=== PATIENT | female | born 1990 | race Caucasian/White ===

== ENCOUNTER 2018-10-25 09:55 | Inpatient (IN) | payer BC, MEDICAID ==
--- NOTE | 2018-10-25 10:07 | PCM.LDHP ---
L&D History of Present Illness - General Date of Service: 10/25/18 Admit Problem/Dx: Admission Diagnosis/Problem Admission Diagnosis/Problem 10/25/18 10:01 Cc a 27-year-old 1 para 0 white female admitted at 40-4/7 weeks gestational age for elective induction of labor. DIANA is 10/21/2018. Source of Information: Patient History Limitations: Reports: No Limitations - History of Present Illness Introduction:: Ida is a 27-year-old 1 para 0 white female present at a and 4/7 weeks gestational age. DIANA is 10/21/2018 as determined by a early ultrasound done 2017 at 6-4/7 weeks gestational age. It is supported by several other ultrasounds done during the course of the . LMP was 01/14/2018. Her last menstrual period was fairly certain. Menarche age 13. Cycles every 26-28 days. No control at the time conception. 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 Patient had her first visit early in the . Is at 11 weeks and 3 days. She is seen on a regular basis. Weight gain was from 205.3 pounds to 249 pounds for a 44 pound weight gain. Her vital signs were stable throughout the course. Patient had mildly elevated blood pressure in the antepartum period she had a flu shot dated 2017. Her group B strep screen was negative on 09/21/2018. She had history of atypical squamous cells of undetermined significance on Pap smear 04/04/2018. She desires to breast-feed. T dap was given on 08/25/2018. Estimated weight on ultrasound done 10/05/2018 was 6 pounds 10 ounces and Laboratory testing and shows her blood to be O+ with a negative antibody screen. First hemoglobin was 13.5 g/dL. Platelets were 264, 000. She is rubella immune. RPR is nonreactive. Hepatitis B surface antigen and HIV assays were both negative. Her chlamydia and gonorrhea were positive and negative respectively. Patient was treated for chlamydia and test of cure was negative. Second trimester labs showed hemoglobin which was normal at 12.8 g/ dL. Platelets were 250,000. One-hour GTT was normal at 112. Group B strep screen was negative. Allergies: none Medications: vitamins Past medical history: 1. Low serum progesterone early in the . 2. Atypical squamous cells on previous Pap smear. Family history: Mother is alive and has an abnormal heart rhythm. She has had her gallbladder removed. She had preeclampsia with third trimester of her first . Father is alive but has diabetes. 2 sisters alive and well. Maternal grandfather health unknown. Maternal grandmother has had her gallbladder removed due to a cancerous lesion. Asthma also present. Paternal grandfather at age 70 from obesity and heart disease. Paternal grandmother is alive and well. There is no family history of cancer, bleeding, clotting, -related issues. Social history: She is single. Her significant other is Vargas Franco. [place] in [facility]. 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 Does not use any significant muscle L call, drugs or tobacco. Review of systems: In general patient has no complaints. Skin: Negative Lungs: No infectious symptoms or shortness of breath Cardiovascular: No chest pain or exercise intolerance Breasts: No lumps, changes in size, pain, dimpling, discharge or axillary or supraclavicular concerns. GI: Negative : Negative Musculoskeletal: Negative Neurological: Negative In general the patient is well-developed, well-nourished, pleasant female of stated age in no acute distress. Skin is warm dry without lesions. HEENT, neck and back within normal limits. Lungs are clear with good breath sounds in all lung sousa. Cardiovascular exam shows regular and rhythm without murmurs. Abdomen is protuberant with fundal height of 42 cm. Patient is moderately obese. Genital-cervix is 2 cm, 70% effaced, soft, posterior, -3 station Extremities and neurological exam are grossly within normal limits. H&P Review of Systems - Review of Systems: Review Of Systems: See Below L&D Exam - Exam Exam: See Below Problem List Initiated/Reviewed/Updated: Yes Assessment/Plan Comment:: 1. 40 4/7 week intrauterine with an DIANA of 10/21/2018admitted for elective induction of labor. 2. Group B strep screen negative 3. The patient plans to breast-feed 4. T dap, flu shot have been given. She is rubella immune. 5. Patient desires epidural in labor and delivery for analgesia. Plan: 1. Pitocin induction of labor with augmentation by artificial rupture membranes. 2. Epidural in labor for analgesia 3. Support breast-feeding decision. 4. Anticipate normal spontaneous vaginal delivery
[2018-10-25] MEDS ORDERED: Sodium Chloride 0.9% 10 ML Syringe FLUSH PRN (19:53)
[2018-10-25] MEDS: Lactated Ringers 1,000 ML IV SCH (21:58)
[2018-10-25] MEDS: Oxytocin/Lactated Ringers 10 UNIT/1,000 ML BAG IV SCH (21:58)
[2018-10-25] MEDS ORDERED: Bupivacaine 0.25% 10 ML SDV ONE (22:00)
[2018-10-25] MEDS ORDERED: Lidocaine 1.5% with EPINEPHrine 1:200,000 5 ML Amp ONE (22:00)
[2018-10-26] MEDS: Lactated Ringers 1,000 ML IV SCH ×6 (01:55→16:35)
[2018-10-26] MEDS ORDERED: fentaNYL 100 MCG/2 ML SDV EPIDUR PRN (07:59)
[2018-10-26] MEDS ORDERED: diphenhydrAMINE 50 MG/ML SDV IVPUSH PRN (07:59)
[2018-10-26] MEDS ORDERED: Ondansetron 4 MG/2 ML SDV IVPUSH PRN (07:59)
[2018-10-26] MEDS ORDERED: ePHEDrine 50 MG/ML SDV IVPUSH PRN (07:59)
[2018-10-26] MEDS: fentaNYL/Bupivacaine-NS 2 MCG/ML-0.125%/PF 100 ML Bag EP SCH ×2 (08:50→17:00)
--- NOTE | 2018-10-26 08:54 | PCM.PREANE ---
Preanesthetic Assessment - Anesthesia/Transfusion/Family Hx Anesthesia History: Prior Anesthesia Without Reaction Family History of Anesthesia Reaction: No Transfusion History: No Prior Transfusion(s) - Review of Systems General: No Symptoms Pulmonary: No Symptoms, Other (congestion in sinus/nasal) Cardiovascular: No Symptoms Gastrointestinal: Other (GERD with ) Neurological: No Symptoms Other: Reports: None - Physical Assessment O2 Sat by Pulse Oximetry: 98 Respiratory Rate: 16 Vital Signs: Last Vital Signs Temp 36.6 C 10/25/18 19:53 Pulse 110 H 10/25/18 19:53 Resp 16 10/25/18 19:53 BP 139/93 H 10/25/18 19:53 Pulse Ox 98 10/25/18 19:53 Height: 1.6 m Weight: 113.534 kg ASA Class: 2 Mental Status: Alert & Oriented x3 Airway Class: Mallampati = 2 Dentition: Reports: Normal Dentition Thyro-Mental Finger Breadths: 2 Mouth Opening Finger Breadths: 3 ROM/Head Extension: Full Lungs: Clear to Auscultation, Normal Respiratory Effort Cardiovascular: Regular Rate, Regular Rhythm - Lab Values: Laboratory Last Values WBC 9.15 K/mm3 (3.98-10.04) 10/25/18 20:10 RBC 4.31 M/mm3 (3.98-5.22) 10/25/18 20:10 Hgb 12.5 gm/L (11.2-15.7) 10/25/18 20:10 Hct 37.6 % (34.1-44.9) 10/25/18 20:10 MCV 87.2 fl (79.4-94.8) 10/25/18 20:10 MCH 29.0 pg (25.6-32.2) 10/25/18 20:10 MCHC 33.2 g/dl (32.2-35.5) 10/25/18 20:10 RDW Std Deviation 45.3 fL (36.4-46.3) 10/25/18 20:10 Plt Count 229 K/mm3 (182-369) 10/25/18 20:10 MPV 12.0 fl (9.4-12.3) 10/25/18 20:10 RPR Non-reactive (NONREACTIVE) 10/25/18 20:10 - Allergies Allergies/Adverse Reactions: Allergies Allergy/AdvReac Type Severity Reaction Status Date / Time No Known Allergies Allergy Verified 10/25/18 19:51 - Acknowledgements Anesthesia Type Planned: Epidural Pt an Appropriate Candidate for the Planned Anesthesia: Yes Alternatives and Risks of Anesthesia Discussed w Pt/Guardian: Yes Pt/Guardian Understands and Agrees with Anesthesia Plan: Yes PreAnesthesia Questionnaire - Past Health History Medical/Surgical History: Denies Medical/Surgical History Other HEENT History: wears glasses 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: - Past Surgical History GI Surgical History: Reports: Appendectomy Other GI Surgeries/Procedures: appy at 15 years old - SUBSTANCE USE Smoking Status *Q: Former Smoker Tobacco Use Within Last Twelve Months: Cigarettes Second Hand Smoke Exposure: No Recreational Drug Use History: No - CURRENT (IN HOUSE) MEDS Current Meds: Current Medications Diphenhydramine HCl (Benadryl) 25 mg IVPUSH Q6H PRN PRN Reason: Pruritis Ephedrine Sulfate (Ephedrine Sulfate) 5 mg IVPUSH ASDIRECTED PRN PRN Reason: Hypotension Fentanyl (Sublimaze) 100 mcg EPIDUR ONETIME PRN PRN Reason: Pain Last Admin: 10/26/18 08:50 Dose: 100 mcg Fentanyl/Bupivacaine HCl (Jmxbhjum-Waxji-Iv 2 Mcg/Ml-0.125%) 100 ml EP ASDIRECTED [facility] Last Admin: 10/26/18 08:50 Dose: 100 ml Lactated Ringer's (Ringers, Lactated) 1,000 mls @ 40 mls/hr IV ASDIRECTED [facility] Last Admin: 10/26/18 08:47 Dose: 999 mls/hr Oxytocin/Lactated Ringer's (Pitocin In Lr 10 Units/1,000 Ml) 10 unit in 1,000 mls @ 12 mls/hr IV TITRATE [facility]; Protocol Last Titration: 10/26/18 08:47 Dose: 12 munits/min, 72 mls/hr Ondansetron HCl (Zofran) 4 mg IVPUSH ONETIME PRN PRN Reason: Nausea/Vomiting Sodium Chloride (Saline Flush) 10 ml FLUSH ASDIRECTED PRN PRN Reason: Keep Vein Open
[2018-10-26] MEDS ORDERED: Lidocaine 1% 50 ML MDV ONE (17:09)
[2018-10-26] MEDS ORDERED: Lidocaine 1% 20 ML MDV INJECT ONE (17:12)
[2018-10-26] MEDS: Oxytocin/Lactated Ringers 10 UNIT/1,000 ML BAG IV SCH (17:17)
[2018-10-26] MEDS ORDERED: Witch Hazel Medicated Pads 100/Jar TOP PRN (19:27)
[2018-10-26] MEDS ORDERED: Lanolin 100% Cream 7 GM Tube TOP PRN (19:27)
[2018-10-26] MEDS ORDERED: Acetaminophen 325 MG Tab PO PRN (19:27)
[2018-10-26] MEDS ORDERED: Benzocaine/Menthol 20%-0.5% Spray 56 GM Canister TOP PRN (19:27)
--- NOTE | 2018-10-26 19:29 | PCM.SN ---
- Free Text/Narrative Note: Delivery note: Ida is a 27-year-old 1 now para 1001 white female who was admitted at 40-5/7 weeks gestational age with an DIANA of 10/21/2018. On the evening 10/25/2018 for an elective induction of labor. She was noted be 2 cm dilated. She was started on Pitocin dosing throughout the night. This a.m. she began progressing more quickly. She underwent an epidural for labor analgesia. She progressed to complete by approximately 1513 hrs. and pushed for approximately 2 hours. At this time patient was relatively fatigued and ask for possible intervention. Options of therapy included continuing pushing as was presently being done, vacuum extraction delivery or section. Patient opted for the extraction attempt. This is discussed in detail including risks, benefits, alternatives. Vacuum extractor was placed. The perineum was infiltrated with lidocaine as epidural was not covering that area very well. She then underwent vacuum extraction delivery and delivered with 1 contraction. Baby delivered in a left occiput anterior position with baby's head rotating the left occiput posterior position with the vacuum extraction delivery. A midline episiotomy was made. No further lacerations occurred. Baby was delivered nose and mouth were bulb suctioned. There is noted to be terminal meconium following the baby. Baby was placed on mom's abdomen. Cord was clamped 2 and then cut by the baby's father. Cord blood was obtained. Pitocin was started after delivery of the baby to facilitate increase in uterine tone and decrease likelihood of bleeding. The placenta in a Urbano dictation, appeared intact and complete and was discarded per patient desire. The midline episiotomy was repaired with 3-0 Monocryl suture in a running fashion no other lacerations were noted. The patient had an estimated blood loss of 100 mL. Plans to breast-feed. Condition: Good
[2018-10-26] MEDS: Ibuprofen 600 MG Tab PO PRN (19:49)
[2018-10-26] MEDS: Docusate Sodium 100 MG Cap PO PRN (19:50)
[2018-10-27] MEDS: Ibuprofen 600 MG Tab PO PRN ×2 (04:04→16:27)
--- NOTE | 2018-10-27 06:46 | PCM.SN ---
- Free Text/Narrative Note: note: Patient is doing well in the period. Minimal lochia, voiding well, ambulated without problems. Nursing without concerns. Patient is afebrile, vital signs pressured be mildly elevated to moderately elevated at times. We'll continue to monitor blood pressures however ensure that the pressure cuff size is appropriate for patient. Abdomen is flat, soft, uterus is below the umbilicus and is firm and nontender. Legs are nontender. Assessment: recovery going well. Pressure borderline to elevated. Question whether appropriate size cuff has been use. Will check with appropriate size, and look at trending blood pressures. Plan: Routine care. Patient be discharged home within the next 24-48 hours.
[2018-10-27] MEDS ORDERED: Prenatal Multivitamin with Calcium/Folic Acid/Iron Tab PO SCH (09:00)
--- NOTE | 2018-10-27 12:47 | PCM48HPAN ---
Post Anesthesia Note - EVALUATION WITHIN 48HRS OF ANESTHETIC Vital Signs in Normal Range: Yes Patient Participated in Evaluation: Yes Respiratory Function Stable: Yes Airway Patent: Yes Cardiovascular Function Stable: Yes Hydration Status Stable: Yes Pain Control Satisfactory: Yes Nausea and Vomiting Control Satisfactory: Yes Mental Status Recovered: Yes - COMMENTS/OBSERVATIONS Free Text/Narrative:: Patient denied any post anesthesia complications
--- NOTE | 2018-10-27 17:58 | PCM.SN ---
- Free Text/Narrative Note: Close clinical monitoring of patient patient's blood pressure is borderline at upper limits of normal to mildly in creased at times. Her preeclampsia labs returned showing 2 significant findings 1 was uric acid 5.1 which is mildly elevated and an AST which 38 which is mildly elevated. Patient's deep tendon reflexes are negligible. She feels fine. Denies any headaches, vision problems, right upper quadrant pain or other signs or symptoms of preeclampsia. New Pap assessment: Assessment: 1. 40-4/7 week intrauterine , delivered, borderline blood pressures, questionable mild preeclampsia was stable clinical situation. Plan: 1. Monitor blood pressures until discharge from hospital. 2. After discharge and see the patient back in a couple days to see how she is doing. We'll have her call for any signs/symptoms of preeclampsia.
[2018-10-28] MEDS: Ibuprofen 600 MG Tab PO PRN ×2 (03:08→12:14)
[2018-10-28] MEDS: Docusate Sodium 100 MG Cap PO PRN (03:08)
--- NOTE | 2018-10-28 13:57 | PCM.DCSUM1 ---
Discharge Summary - Hospital Course Free Text/Narrative:: Ida is a 27-year-old 1 now para 1001 white female who was admitted at 40-5/7 weeks gestational age with an DIANA of 10/21/2018. On the evening 10/25/2018 for an elective induction of labor. She was noted be 2 cm dilated. She was started on Pitocin dosing throughout the night. This a.m. she began progressing more quickly. She underwent an epidural for labor analgesia. She progressed to complete by approximately 1513 hrs. and pushed for approximately 2 hours. At this time patient was relatively fatigued and ask for possible intervention. Options of therapy included continuing pushing as was presently being done, vacuum extraction delivery or section. Patient opted for the extraction attempt. This is discussed in detail including risks, benefits, alternatives. Vacuum extractor was placed. The perineum was infiltrated with lidocaine as epidural was not covering that area very well. She then underwent vacuum extraction delivery and delivered with 1 contraction. Baby delivered in a left occiput anterior position with baby's head rotating the left occiput posterior position with the vacuum extraction delivery. A midline episiotomy was made. No further lacerations occurred. Baby was delivered nose and mouth were bulb suctioned. There is noted to be terminal meconium following the baby. Baby was placed on mom's abdomen. Cord was clamped 2 and then cut by the baby's father. Cord blood was obtained. Pitocin was started after delivery of the baby to facilitate increase in uterine tone and decrease likelihood of bleeding. The placenta in a Urbano dictation, appeared intact and complete and was discarded per patient desire. The midline episiotomy was repaired with 3-0 Monocryl suture in a running fashion no other lacerations were noted. The patient had an estimated blood loss of 100 mL. Plans to breast-feed. patient has had some borderline elevated blood pressures. They're in the 135-145 systolic range and the high 80s diastolic. Deep tendon reflexes have been normal. She has had trace to 1+ pitting edema in lower extremity's. She is feeling fine. Patient is watched closely but developed no other signs/ symptoms of preeclampsia. Preeclampsia labs were performed and showed a uric acid be 5.1-borderline and her AST was 38 which is mildly increased. All other labs were within normal limits. Patient is desiring discharge home. Diagnosis: Stroke: No - Discharge Data Discharge Date: 10/28/18 Discharge Disposition: Home, Self-Care 01 Condition: Good - Patient Instructions Diet: Regular Diet as Tolerated (Nursing diet was increased calories and calcium as directed.) Activity: As Tolerated (No intercourse or tampons until bleeding resolves) Driving: Do Not Drive Showering/Bathing: May Shower (2 days may take a bath) Notify Provider of: Fever, Increased Pain, Swelling and Redness, Nausea and/or Vomiting Other/Special Instructions: Patient is to call for signs or symptoms of preeclampsia as discussed in hospital. - Discharge Plan Home Medications: Home Meds Acetaminophen [Tylenol] 650 mg PO Q4H PRN tablet 10/28/18 [Rx] Ibuprofen [Motrin] 600 mg PO Q4H PRN tablet 10/28/18 [Rx] Patient Handouts: Home Care Instructions for Mom, Steps to Quit Smoking Referrals: Marcello Martin MD [Primary Care Provider] - (Return to clinic3-4 days for blood pressure) - Discharge Summary/Plan Comment DC Time >30 min.: No Discharge Summary/Plan Comment: Discharge instructions: 1. Discharge home 2. Diet, activity and follow-up discussed with patient. Recommend nursing diet with increased calories and calcium. 3. Precautions given concern increased pain, bleeding, temperature, signs/ symptoms of DVT/PE or preeclampsia. 4. Medications per home medication was printed, discussed with and given to the patient. 5. Return to clinic-Dr. Martin-[facility]-3-4 days for blood pressure check. Diagnosis: 1. Term -delivered 2. Borderline blood pressure elevation Condition: Good - Patient Data Vitals - Most Recent: Last Vital Signs Temp 36.6 C 10/28/18 08:26 Pulse 107 H 10/28/18 08:26 Resp 16 10/28/18 08:26 BP 139/86 10/28/18 08:26 Pulse Ox 99 10/28/18 08:26 Weight - Most Recent: 113.534 kg I&O - Last 24 hours: Intake & Output 10/27/18 10/28/18 10/28/18 22:59 06:59 14:59 Intake Total 1 Balance 1 Med Orders - Current: Current Medications Acetaminophen (Tylenol) 650 mg PO Q4H PRN PRN Reason: mild pain or fever Benzocaine/Menthol (Dermoplast Pain Relief [place]) 0 gm TOP ASDIRECTED PRN PRN Reason: Perineal Comfort Measure Last Admin: 10/26/18 19:48 Dose: 1 can Docusate Sodium (Colace) 100 mg PO BID PRN PRN Reason: Constipation Last Admin: 10/28/18 03:08 Dose: 100 mg Emollient Ointment (Lansinoh Hpa) 0 gm TOP ASDIRECTED PRN PRN Reason: Sore Nipples Ibuprofen (Motrin) 600 mg PO Q4H PRN PRN Reason: Mild pain or fever Last Admin: 10/28/18 12:14 Dose: 600 mg Prenat Multivit/[place]/Iron/Folic Ac ( Plus Iron) 1 each PO DAILY [facility] Last Admin: 10/28/18 12:14 Dose: 1 each Witch Justine (Tucks) 1 pad TOP ASDIRECTED PRN PRN Reason: Hemorrhoid pain Last Admin: 10/26/18 19:48 Dose: 1 canister Discontinued Medications Diphenhydramine HCl (Benadryl) 25 mg IVPUSH Q6H PRN PRN Reason: Pruritis Ephedrine Sulfate (Ephedrine Sulfate) 5 mg IVPUSH ASDIRECTED PRN PRN Reason: Hypotension Fentanyl (Sublimaze) 100 mcg EPIDUR ONETIME PRN PRN Reason: Pain Last Admin: 10/26/18 08:50 Dose: 100 mcg Fentanyl/Bupivacaine HCl (Smwwhuey-Ftiav-Nz 2 Mcg/Ml-0.125%) 100 ml EP ASDIRECTED [facility] Last Admin: 10/26/18 17:00 Dose: 100 ml Lactated Ringer's (Ringers, Lactated) 1,000 mls @ 40 mls/hr IV ASDIRECTED [facility] Last Admin: 10/26/18 16:35 Dose: 250 mls/hr Oxytocin/Lactated Ringer's (Pitocin In Lr 10 Units/1,000 Ml) 10 unit in 1,000 mls @ 12 mls/hr IV TITRATE [facility]; Protocol Last Admin: 10/26/18 17:17 Dose: 999 mls/hr Lidocaine HCl (Xylocaine 1%) Confirm Administered Dose 50 ml .ROUTE .STK-MED ONE Stop: 10/26/18 17:10 Last Admin: 10/26/18 17:32 Dose: 50 ml Lidocaine HCl (Xylocaine 1%) 20 ml INJECT ONETIME ONE Stop: 10/26/18 17:13 Last Admin: 10/26/18 17:32 Dose: Not Given Ondansetron HCl (Zofran) 4 mg IVPUSH ONETIME PRN PRN Reason: Nausea/Vomiting Sodium Chloride (Saline Flush) 10 ml FLUSH ASDIRECTED PRN PRN Reason: Keep Vein Open
== END 2018-10-28 15:10 | disposition home or self-care (01) | DRG 560 ==
LOC: JD.OB 17:16 → OBSVTOIN 10-26 17:16 → JD.OB 10-26 17:17
PROVIDERS: ADMIT Obstetrics & Gynecology; ATTEND Obstetrics & Gynecology
PROC: 3E033VJ Introduction of Other Hormone into Peripheral Vein, Percutaneous Approach (ICD-10-PCS; principal; 2018-10-26)
PROC: 6A550ZT Pheresis of Cord Blood Stem Cells, Single (ICD-10-PCS; principal; 2018-10-26)
PROC: 0W8NXZZ Division of Female Perineum, External Approach (ICD-10-PCS; principal; 2018-10-26)
PROC: 10D07Z6 Extraction of Products of Conception, Vacuum, Via Natural or Artificial Opening (ICD-10-PCS; principal; 2018-10-26)
PROC: 3E0R3BZ Introduction of Anesthetic Agent into Spinal Canal, Percutaneous Approach (ICD-10-PCS; 2018-10-26)
PROC: 00HU33Z Insertion of Infusion Device into Spinal Canal, Percutaneous Approach (ICD-10-PCS; 2018-10-26)
DX: O48.0 Post-term pregnancy (principal); O75.81 Maternal exhaustion complicating labor and delivery; Z3A.40 40 weeks gestation of pregnancy; O64.0XX0 Obstructed labor due to incomplete rotation of fetal head, not applicable or unspecified; Z37.0 Single live birth; O69.81X0 Labor and delivery complicated by cord around neck, without compression, not applicable or unspecified; O14.05 Mild to moderate pre-eclampsia, complicating the puerperium; O99.214 Obesity complicating childbirth; E66.9 Obesity, unspecified; O99.62 Diseases of the digestive system complicating childbirth; K21.9 Gastro-esophageal reflux disease without esophagitis
CPT/HCPCS: 01967; 36415; 51702; 59025; 59409; 80053; 84550; 85025; 85027; 86592; A9270-GY; J2001; J2590; J3010; J3490; J7120

== ENCOUNTER 2018-11-21 01:52 | Emergency (ER) | payer BC, MEDICAID ==
[2018-11-21] MEDS ORDERED: Ondansetron 4 MG/2 ML SDV IVPUSH ONE (02:18)
--- NOTE | 2018-11-21 02:21 | EDM.PDOC ---
ED HPI GENERAL MEDICAL PROBLEM - General Chief Complaint: Back Pain or Injury Stated Complaint: BACK PAIN RECENTLY GAVE Time Seen by Provider: 11/21/18 02:06 Source of Information: Reports: Patient, RN Notes Reviewed History Limitations: Reports: No Limitations - History of Present Illness INITIAL COMMENTS - FREE TEXT/NARRATIVE: The patient states that she was woken from sleep around 01:00 with sudden onset low back pain and epigastric pain. She later developed pain in between her scapulae. She describes the low back pain as a pressure sensation and the epigastric pain like a contraction. Initially it was severe, although it has diminished somewhat. The patient states that she took a warm shower, which seem to help the pain, although she had nausea and vomiting while in the shower. No recent constipation or diarrhea. No recent urinary symptoms. The patient has not taken any medications to treat her symptoms. The patient states that she had similar symptoms, during labor. The patient delivered on 10/26/2018. The patient states that she had a slice of pizza around 20:00 last night, but has not had anything since. The patient does not have a PCP. 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 Marcello Martin. 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: Reports: : 1 Para: 1 Endocrine/Metabolic History: Reports: Obesity/BMI 30+ - Past Surgical History HEENT Surgical History: Reports: Adenoidectomy, Myringotomy w Tube(s) (bilateral ), Tonsillectomy GI Surgical History: Reports: Appendectomy Other GI Surgeries/Procedures: appy at 15 years old Social & Family History - Family History Family Medical History: Noncontributory - Tobacco Use Smoking Status *Q: Former Smoker Month/Year Tobacco Last Used: Quit 2017 - Alcohol Use Alcohol Use History: Yes Alcohol Use Frequency: Socially - Recreational Drug Use Recreational Drug Use: No - Living Situation & Occupation Living situation: Reports: Single, with Significant Other (Fiance), with Family (1 baby) Occupation: Employed ([employer]) ED ROS GENERAL - Review of Systems Review Of Systems: ROS reveals no pertinent complaints other than HPI. ED EXAM, GI/ABD - Physical Exam Exam: See Below Exam Limited By: No Limitations General Appearance: Alert, WD/WN, Mild Distress (Appears uncomfortable) Eyes: Bilateral: Normal Appearance, EOMI Ears: Normal External Exam, Hearing Grossly Normal Nose: Normal Inspection Throat/Mouth: Normal Inspection, Normal Lips, Normal Voice, No Airway Compromise Head: Atraumatic, Normocephalic Neck: Normal Inspection, Full Range of Motion Respiratory/Chest: No Respiratory Distress, Lungs Clear, Normal Breath Sounds, No Accessory Muscle Use Cardiovascular: Normal Peripheral Pulses, Regular Rate, Rhythm, No Gallop, No JVD, No Murmur, No Rub GI/Abdominal Exam: Normal Bowel Sounds, Soft, No Organomegaly, No Distention, No Abnormal Bruit, No Mass, Pelvis Stable, Tender (Reproducible, to the right upper quadrant and epigastrium. Mireles's sign present. Nontender elsewhere.), Other (Obese) (Female) Exam: Deferred Rectal (Female) Exam: Deferred Back Exam: Normal Inspection, Full Range of Motion. No: CVA Tenderness (L), CVA Tenderness (R), Paraspinal Tenderness, Vertebral Tenderness Extremities: Normal Inspection, Normal Range of Motion, Normal Capillary Refill Neurological: Alert, Oriented, Normal Cognition, No Motor/Sensory Deficits Psychiatric: Normal Affect Skin Exam: Warm, Dry, Intact, Normal Color, No Rash Course - Vital Signs Last Recorded V/S: Last Vital Signs Temp 36.3 C 11/21/18 01:59 Pulse 100 11/21/18 01:59 Resp 16 11/21/18 01:59 BP 139/102 H 11/21/18 01:59 Pulse Ox 98 11/21/18 01:59 - Orders/Labs/Meds Orders: Active Orders 24 hr Category Date Time Status Abdomen Pelvis w Cont [CT] Stat Exams 11/21/18 02:18 Taken Sodium Chloride 0.9% [Normal Saline] 1,000 ml Med 11/21/18 02:30 Active IV ASDIRECTED Medication Orders Sodium Chloride (Normal Saline) 1,000 mls @ 150 mls/hr IV ASDIRECTED SUMI Last Admin: 11/21/18 02:26 Dose: 150 mls/hr Labs: Laboratory Tests 11/21/18 11/21/18 Range/Units 02:21 02:21 WBC 6.83 (3.98-10.04) K/mm3 RBC 4.35 (3.98-5.22) M/mm3 Hgb 12.4 (11.2-15.7) gm/L Hct 38.0 (34.1-44.9) % MCV 87.4 (79.4-94.8) fl MCH 28.5 (25.6-32.2) pg MCHC 32.6 (32.2-35.5) g/dl RDW Std Deviation 39.7 (36.4-46.3) fL Plt Count 260 (182-369) K/mm3 MPV 10.3 (9.4-12.3) fl Neutrophils % (Manual) 52 (40-60) % Band Neutrophils % 0 (0-10) % Lymphocytes % (Manual) 42 H (20-40) % Atypical Lymphs % 0 % Monocytes % (Manual) 2 (2-10) % Eosinophils % (Manual) 3 (0.7-5.8) % Basophils % (Manual) 1 (0.1-1.2) Platelet Estimate Adequate Plt Morphology Comment Normal RBC Morph Comment Normal Sodium 143 (136-145) mEq/L Potassium 3.5 (3.5-5.1) mEq/L Chloride 108 H (98-107) mEq/L Carbon Dioxide 27 (21-32) mEq/L Anion Gap 11.5 (5-15) BUN 15 (7-18) mg/dL Creatinine 0.7 (0.55-1.02) mg/dL Est Cr Clr Drug Dosing 101.63 mL/min Estimated GFR (MDRD) > 60 (>60) mL/min BUN/Creatinine Ratio 21.4 H (14-18) Glucose 104 (74-106) mg/dL Calcium 8.9 (8.5-10.1) mg/dL Total Bilirubin 0.6 (0.2-1.0) mg/dL AST 26 (15-37) U/L ALT 48 (14-59) U/L Alkaline Phosphatase 113 (46-116) U/L Total Protein 6.4 (6.4-8.2) g/dl Albumin 3.3 L (3.4-5.0) g/dl Globulin 3.1 gm/dL Albumin/Globulin Ratio 1.1 (1-2) Lipase 141 (73-393) U/L Meds: Medications Generic Name Dose Route Start Last Admin Trade Name Freq PRN Reason Stop Dose Admin Sodium Chloride 1,000 mls @ 150 mls/hr 11/21/18 02:30 11/21/18 02:26 Normal Saline IV 150 mls/hr ASDIRECTED SUMI Administration Discontinued Medications Generic Name Dose Route Start Last Admin Trade Name Freq PRN Reason Stop Dose Admin Diatrizoate Meglum/Diatrizoate Sod 90 ml 11/21/18 03:01 11/21/18 03:40 Gastrografin 37% PO 11/21/18 03:02 90 ml ONETIME ONE Administration Hydromorphone HCl 1 mg 11/21/18 02:18 11/21/18 02:26 Dilaudid IVPUSH 11/21/18 02:19 0.5 mg ONETIME STA Administration Iopamidol 100 ml 11/21/18 03:01 11/21/18 03:39 Isovue-370 (76%) IV 11/21/18 03:02 100 ml ONETIME ONE Administration Ondansetron HCl 4 mg 11/21/18 02:18 11/21/18 02:26 Zofran IVPUSH 11/21/18 02:19 4 mg ONETIME ONE Administration - Re-Assessments/Exams Free Text/Narrative Re-Assessment/Exam: 11/21/18 02:20 Based on the patient's history and physical examination, I suspect that she is suffering from biliary colic. I have ordered blood work and a CT scan of the abdomen and pelvis with oral and IV contrast to rule out other etiologies, and in the meantime the patient will receive IV Dilaudid, IV Zofran, and IV fluid. 11/21/18 04:21 CT of the abdomen and pelvis with oral and IV contrast is read by Cari as: Cholelithiasis. Small amount of edema in the subcutaneous fat just above the umbilicus and could be secondary to trauma or inflammation. 11/21/18 04:29 Test results discussed with the patient and her . The presence of cholelithiasis does not confirm that the patient has cholecystitis, however, no other explanation for the patient's abdominal pain was found. I will discharge the patient home with prescriptions for Napoleon and Zofran, and refer her to the surgeon for further evaluation. Departure - Departure Time of Disposition: 04:29 Disposition: Home, Self-Care 01 Condition: Fair Clinical Impression: Right upper quadrant abdominal pain, Cholelithiasis - Discharge Information *PRESCRIPTION DRUG MONITORING PROGRAM REVIEWED*: Not Applicable *COPY OF PRESCRIPTION DRUG MONITORING REPORT IN PATIENT [place]: Not Applicable Prescriptions: Acetaminophen/HYDROcodone [Napoleon 325-5 MG] 1 - 2 tab PO Q6H PRN #20 tablet PRN Reason: Pain (Severe 7-10) Ondansetron [Zofran ODT] 1 tab PO Q8H PRN #10 tab.dis PRN Reason: Nausea/Vomiting Referrals: Marcello Martin MD [Primary Care Provider] - Charlie Bansk MD [Physician] - Forms: ED Department Discharge Additional Instructions: You were seen in the emergency room for sudden onset lower back and upper abdominal pain that radiated through to your upper back, along with nausea and vomiting. Workup in the ER included blood work and a CT scan of your abdomen and pelvis with oral and IV contrast. Your blood work was unremarkable. You do not have pancreatitis. The CT scan found that you have gallstones, although it did not show inflammation of your gallbladder. This is common, even in patients who have gallbladder disease. Based on your history, physical examination, and ER tests, the cause of your symptoms is most likely due to cholecystitis = a sick gallbladder, however, we were not able to prove that in the ER. Further tests may be necessary. Eat as low fat a diet as you can. Fat, oil, and grease may cause recurrence of your pain. You have been prescribed the opioid pain reliever Napoleon. Take 1-2 tablets of Napoleon up to every 6 hours, as needed for pain. If you take Napoleon, do not drive or operate heavy machinery for 10 hours afterwards. Napoleon will likely cause constipation, so consider taking a stool softener. You have also been prescribed the anti-nausea medicine Zofran. Dissolve one tablet of Zofran on your tongue up to every 8 hours, as needed for nausea/ vomiting. Follow-up with the surgeon Dr. Charlie Banks at the next available appointment. If any other problems, please do not hesitate to return to the ER. - My Orders Last 24 Hours: My Active Orders 11/21/18 02:18 Abdomen Pelvis w Cont [CT] Stat 11/21/18 02:30 Sodium Chloride 0.9% [Normal Saline] 1,000 ml IV ASDIRECTED - Assessment/Plan Last 24 Hours: My Active Orders 11/21/18 02:18 Abdomen Pelvis w Cont [CT] Stat 11/21/18 02:30 Sodium Chloride 0.9% [Normal Saline] 1,000 ml IV ASDIRECTED
[2018-11-21] MEDS: HYDROmorphone 1 MG/ML Syringe IVPUSH STA ×2 (02:26→04:23)
[2018-11-21] MEDS ORDERED: Sodium Chloride 0.9% 1,000 ML IV SCH (02:30)
[2018-11-21] MEDS ORDERED: Diatrizoate Meglumine/Diatrizoate Sodium 37% 120 ML Bottle PO ONE (03:01)
[2018-11-21] MEDS ORDERED: Iopamidol 755 Mg/ML 200 ML Bottle IV ONE (03:01)
--- NOTE | 2018-11-21 07:07 | CT ---
CT abdomen and pelvis Technique: Multiple axial sections were obtained from above the dome of the diaphragm inferiorly through the pubic symphysis. Intravenous and oral contrast was utilized. Delayed images were also obtained through the bladder. Comparison: No prior CT abdomen or pelvis exam is available. Findings: Small portion of the visualized lung bases are clear. Gallbladder is contracted which contains multiple small calcified gallstones. Liver contains no focal parenchymal abnormality. Spleen appears within normal limits. Adrenal glands show no nodule. Pancreas is within normal limits. Aorta shows no aneurysm. Kidneys show symmetric contrast enhancement without hydronephrosis or mass. Delayed images show contrast within the distal ureters and within the bladder. No retroperitoneal adenopathy or mesenteric abnormalities are seen. No pelvic mass or adenopathy is identified. Appendix is not visualized with certainty. Small amount of increased density is noted above the umbilicus. On the sagittal view there appears to be a small amount of fluid in this area which is located within the subcutaneous fat. This finding measures approximately 1.8 cm. No additional abdominal wall abnormality is seen. Bone window settings were reviewed which appear within normal limits for the patient's age. Impression: 1. 1.8 cm area of increased density above the umbilicus having the appearance of fluid. This may represent a small subcutaneous seroma or other benign finding. Please correlate that there is no acute physical symptoms to the anterior abdominal wall in this area. 2. Multiple small calcified gallstones within a contracted gallbladder. 3. No additional abnormality is seen on CT study of the abdomen and pelvis. Diagnostic code #3 I agree with preliminary report from [facility], finalized on 11/21/18, 5:03 AM Central Time
== END 2018-11-21 04:50 | disposition home or self-care (01) ==
LOC: JD.ED 01:52
DX: K80.20 Calculus of gallbladder without cholecystitis without obstruction (principal); Z87.891 Personal history of nicotine dependence
CPT/HCPCS: 36415; 74177; 80053; 83690; 85007; 85027; 96361; 96374; 96375; 96376; 99284; J1170; J2405; J7040; Q9963; Q9967

== ENCOUNTER 2019-02-12 04:12 | Emergency (ER) | payer MEDICAID ==
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
--- NOTE | 2019-02-13 11:06 | CR ---
Right shoulder: Three views of the right shoulder were obtained. Comparison: No prior shoulder study. Glenohumeral and acromioclavicular joints appear within normal limits. No fracture, dislocation or other bony abnormality is seen. Impression: 1. No abnormality is identified on right shoulder study. Diagnostic code #1
== END 2019-02-12 05:39 | disposition home or self-care (01) ==
LOC: JD.ED 04:12
DX: S09.90XA Unspecified injury of head, initial encounter (principal); S43.491A Other sprain of right shoulder joint, initial encounter; V89.2XXA Person injured in unspecified motor-vehicle accident, traffic, initial encounter
CPT/HCPCS: 73030-26-RT; 73030-RT; 99282; 99283-25

== ENCOUNTER 2020-02-01 07:11 | Day surgery (SDC) | payer MEDICAID ==
[~2020-02-01 07:11] MED LIST: Lactated Ringers 1,000 ML IV SCH; Lidocaine 1% 4 ML ONE; Lidocaine 1%/Sod Bicarbonate in NS 8.4% 1 ML Syringe IDERM PRN; Midazolam 1 MG/ML 2 ML SDV ONE; Propofol 200 MG/20 ML SDV ONE; Rocuronium 50 MG/5 ML Vial ONE; Sodium Chloride 0.9% 10 ML Syringe FLUSH PRN; fentaNYL 250 MCG/5 ML SDV ONE
[2020-02-01] MEDS ORDERED: Bupivacaine 0.5%/EPINEPHrine 1:200,000 50 ML MDV ONE (07:23)
--- NOTE | 2020-02-01 07:30 | PCM.PREANE ---
Preanesthetic Assessment - Anesthesia/Transfusion/Family Hx Anesthesia History: Prior Anesthesia Without Reaction Family History of Anesthesia Reaction: No Transfusion History: No Prior Transfusion(s) - Review of Systems General: No Symptoms Pulmonary: No Symptoms Cardiovascular: No Symptoms Gastrointestinal: No Symptoms Neurological: No Symptoms Other: Reports: None - Physical Assessment NPO Status Date: 01/31/20 NPO Status Time: 22:30 ASA Class: 2 Mental Status: Alert & Oriented x3 Airway Class: Mallampati = 1 Dentition: Reports: Normal Dentition Thyro-Mental Finger Breadths: 3 Mouth Opening Finger Breadths: 2 ROM/Head Extension: Full Lungs: Clear to Auscultation, Normal Respiratory Effort Cardiovascular: Regular Rate, Regular Rhythm - Allergies Allergies/Adverse Reactions: Allergies Allergy/AdvReac Type Severity Reaction Status Date / Time No Known Allergies Allergy Verified 02/12/19 04:32 - Acknowledgements Anesthesia Type Planned: General Anesthesia Pt an Appropriate Candidate for the Planned Anesthesia: Yes Alternatives and Risks of Anesthesia Discussed w Pt/Guardian: Yes Pt/Guardian Understands and Agrees with Anesthesia Plan: Yes PreAnesthesia Questionnaire - Past Health History Medical/Surgical History: Denies Medical/Surgical History HEENT History: Reports: Impaired Vision Other HEENT History: wears glasses Cardiovascular History: Reports: None, SOB on Exertion Respiratory History: Reports: Sleep Apnea (diagnosed 2019 no CPAP) Gastrointestinal History: Reports: GERD Genitourinary History: Reports: Other (See Below) (MRI 6-10 for kidney for "spot " awaiting results) MANAGER MEDICAID History: Reports: Musculoskeletal History: Reports: None Neurological History: Reports: None Psychiatric History: Reports: Anxiety, Depression, Other (See Below) Other Psychiatric History: depression Endocrine/Metabolic History: Reports: Obesity/BMI 30+ - Past Surgical History HEENT Surgical History: Reports: Adenoidectomy, Myringotomy w Tube(s), Tonsillectomy GI Surgical History: Reports: Appendectomy Other GI Surgeries/Procedures: appy at 15 years old - SUBSTANCE USE Smoking Status *Q: Former Smoker - HOME MEDS Home Medications: Home Meds . [No Known Home Meds] 02/12/19 [History] - CURRENT (IN HOUSE) MEDS Current Meds: Current Medications Lactated Ringer's (Ringers, Lactated) 1,000 mls @ 125 mls/hr IV ASDIRECTED SUMI Stop: 02/01/20 23:00 Lidocaine/Sodium Bicarbonate (Buffered Lidocaine 1% In Ns 8.4%) 0.25 ml IDERM ONETIME PRN PRN Reason: Prior to IV Start Stop: 02/01/20 23:00 Sodium Chloride (Saline Flush) 10 ml FLUSH ASDIRECTED PRN PRN Reason: Keep Vein Open Stop: 02/01/20 23:00 Discontinued Medications Fentanyl (Sublimaze) Confirm Administered Dose 250 mcg .ROUTE .STK-MED ONE Stop: 02/01/20 07:05 Lidocaine HCl (Xylocaine-Mpf 1%) Confirm Administered Dose 4 mls @ as directed .ROUTE .STK-MED ONE Stop: 02/01/20 07:04 Midazolam HCl (Versed 1 Mg/Ml) Confirm Administered Dose 2 mg .ROUTE .STK-MED ONE Stop: 02/01/20 07:05 Propofol (Diprivan 20 Ml) Confirm Administered Dose 200 mg .ROUTE .STK-MED ONE Stop: 02/01/20 07:03 Rocuronium [place] (Zemuron) Confirm Administered Dose 50 mg .ROUTE .STK-MED ONE Stop: 02/01/20 07:04
[2020-02-01] MEDS ORDERED: ceFAZolin 1 GM Vial ONE (08:07)
[2020-02-01] MEDS ORDERED: Ondansetron 4 MG/2 ML SDV IVPUSH PRN (08:40)
[2020-02-01] MEDS ORDERED: diphenhydrAMINE 50 MG/ML SDV IVPUSH PRN (08:40)
[2020-02-01] MEDS ORDERED: HYDROmorphone 0.5 MG/0.5 ML Syringe IVPUSH ONE (08:42)
[2020-02-01] MEDS ORDERED: HYDROmorphone 0.5 MG/0.5 ML Syringe ONE (08:45)
[2020-02-01] MEDS ORDERED: Ondansetron 4 MG/2 ML SDV ONE (08:46)
[2020-02-01] MEDS ORDERED: fentaNYL 100 MCG/2 ML SDV ONE (08:55)
[2020-02-01] MEDS ORDERED: Ketorolac 30 MG/ML SDV ONE (09:06)
--- NOTE | 2020-02-01 09:35 | PCM.POSTAN ---
POST ANESTHESIA ASSESSMENT - MENTAL STATUS Mental Status: Alert, Oriented - VITAL SIGNS Vital Signs: Last Vital Signs Temp 36.8 C 02/01/20 07:16 Pulse 79 02/01/20 07:16 Resp 16 02/01/20 07:16 BP 119/72 02/01/20 07:16 Pulse Ox 97 02/01/20 07:16 - RESPIRATORY Respiratory Status: Respiratory Rate WNL, Airway Patent, O2 Saturation Stable - CARDIOVASCULAR CV Status: Pulse Rate WNL, Blood Pressure Stable - GASTROINTESTINAL GI Status: No Symptoms - PAIN Pain Score: 0 - POST OP HYDRATION Hydration Status: Adequate & Stable
--- NOTE | 2020-02-01 09:37 | PCM.PRNOTE ---
- Free Text/Narrative Note: Operative Report Operation: laparoscopic cholecystectomy Date: 02/01/2020 Attending Surgeon: Ernie Camarillo MD Manager Human Capital: [place] Aj Indication for Surgery:symptomatic cholelithiasis Preoperative antibiotics: 3 g Ancef IV VTE prophylaxis: SCDs Estimated Blood Loss: 10 cc Findings: mild omental adhesions to gallbladder. Critical view of safety obtained. Detailed Report: The patient underwent general endotracheal anesthesia after being placed supine on the operating table and initial timeout. The abdomen was prepped and draped in sterile fashion. A pre-incision timeout was performed confirming the patient� s identity and the operation to be performed. A Veress needle was inserted into the abdominal cavity below the left costal margin along the mid-clavicular line. The abdomen was insufflated with CO2 to 15 mm Hg. Gas was aspirated below the umbilicus with a syringe in order to ensure safe placement of a 5 mm bladed laparoscopic port. The 5mm 30 degree laparoscope was then inserted and viscera inspected. The gallbladder appeared relatively normal, with some omental adesions to the body requiring dissection. Two additional 5 mm ports were placed along the right subcostal region under direct vision with the laparoscope , and a 12 mm port was placed at the subxiphoid region. The gallbladder was grasped at the fundus with a locking grasper and retracted anteriorly and superiorly, exposing the infundibulum. This was grasped with the surgeon�s left hand grasper and retracted laterally. The hook electrode was used to open the overlying peritoneum, and this plane of dissection was developed along the edges of the gallbladder at its interface with the liver bed. A combination of hook electrode, blunt dissection with the suction wall covering contractor and the [place] grasper were used to carefully expose and skeletonize the cystic duct and artery. A critical view of safety was obtained. Hemolock clips were then placed on both structures. The duct and artery were transected with laparoscopic scissors between the hemolock clips. The hook was then used to dissect the gallbladder free from its attachment to the liver. The specimen was then placed in an Endocatch bag and removed through the subxiphoid port. The liver bed was inspected and appeared hemostatic. The larger subxiphoid port was closed at the level of the fascia with vicryl suture using the PMI laparoscopic suture passer. Pneumoperitoneum was then released. All skin incisions were then closed with placement of subcuticular vicryl suture and dressed with dermabond. A total of 30 cc 0.5% marcaine with epinephrine was used for local anesthesia at the incision sites. The patient tolerated the operation well, was extubated in the operating room and transferred to the PACU for routine post-anesthesia care. Ernie Camarillo MD General Surgery
[2020-02-01] MEDS ORDERED: diphenhydrAMINE 50 MG/ML SDV ONE (09:39)
[2020-02-01] MEDS: fentaNYL 100 MCG/2 ML SDV IVPUSH PRN ×2 (09:46→10:10)
--- NOTE | 2020-02-01 09:46 | PCM48HPAN ---
Post Anesthesia Note - EVALUATION WITHIN 48HRS OF ANESTHETIC Vital Signs in Normal Range: Yes Patient Participated in Evaluation: Yes Respiratory Function Stable: Yes Airway Patent: Yes Cardiovascular Function Stable: Yes Hydration Status Stable: Yes Pain Control Satisfactory: Yes Nausea and Vomiting Control Satisfactory: Yes Mental Status Recovered: Yes Vital Signs: Last Vital Signs Temp 36.6 C 02/01/20 09:27 Pulse 65 02/01/20 09:41 Resp 18 02/01/20 09:41 BP 125/67 02/01/20 09:41 Pulse Ox 98 02/01/20 09:41
[2020-02-01] MEDS ORDERED: oxyCODONE 5 MG Tab PO ONE (10:45)
== END 2020-02-01 12:39 | disposition home or self-care (01) ==
LOC: JD.SDS 07:11
PROVIDERS: ATTEND Surgery
DX: K80.10 Calculus of gallbladder with chronic cholecystitis without obstruction (principal); F32.9 Major depressive disorder, single episode, unspecified; G47.9 Sleep disorder, unspecified; G47.30 Sleep apnea, unspecified; E66.9 Obesity, unspecified; Z79.899 Other long term (current) drug therapy; Z90.49 Acquired absence of other specified parts of digestive tract; Z87.891 Personal history of nicotine dependence; Z68.42 Body mass index [BMI] 45.0-49.9, adult
CPT/HCPCS: 47562; 81025; A9270; J0690; J1170; J1200; J1885; J2001; J2250; J2405; J2704; J3010; J3490; J7120; 00790